=== PATIENT | male | born 1995 | race Caucasian/White ===

== ENCOUNTER 2024-02-12 12:14 | Emergency (ER) | payer OTHER, SELFPAY ==
[2024-02-12 12:27] VITALS: BP 145/91
[2024-02-12 12:55] LABS: ALT (SGPT) 16 U/L (0-50); AST (SGOT) 25 U/L (17-59); Albumin 4.9 g/dl (3.5-5.0); Alkaline Phosphatase 54 U/L (38-126); Blood Urea Nitrogen 24 mg/dl (9-20); Calcium 9.8 mg/dl (8.4-10.2); Carbon Dioxide 29 mmol/L (22-30); Chloride 103 mmol/L (98-107); Glucose 87 mg/dl (70-99); Lipase 86 U/L (23-300); Sodium 138 mmol/L (135-145); Total Bilirubin 0.5 mg/dl (0.2-1.3); Total Protein 7.3 g/dl (6.3-8.2); eGFR > 60.00
[2024-02-12 13:02] LABS: % Basophils 0.5 % (0-2); % Eosinophils 1.5 % (0-6); % Immature Granulocytes 0.1 % (0-0.5); % Lymphocytes 29.1 % (20.5-51.1); % Monocytes 8.2 % (1.7-9.3); % Neutrophils 60.6 % (42.2-75.2); Absolute Eosinophils 0.1 10^3/uL (0-0.7); Absolute Lymphocytes 2.3 10^3/uL (1.2-3.4); Absolute Monocytes 0.6 10^3/uL (0.1-0.6); Absolute Neutrophils 4.8 10^3/uL (1.4-6.5); Hematocrit 45.1 % (39.0-52.0); Hemoglobin 15.1 g/dL (13.0-18.0); Mean Corp Hgb Conc. 33.5 g/dL (33.0-37.0); Mean Corpuscular Hgb 29.4 pg (27.0-31.0); Mean Corpuscular Volume 87.9 fL (80.0-94.0); Mean Platelet Volume 10.7 fL (7.4-10.4); Nucleated Red Blood Cells % 0 % (-); Platelet Count 204 10^3/uL (130-400); Red Blood Cell Count 5.13 10^6/uL (4.70-6.10); Red Cell Dist. Width 11.7 % (11.5-14.5); White Blood Cell Count 7.8 10^3/uL (4.8-10.8)
[2024-02-12 15:28] VITALS: BMI 24.6
[2024-02-12 16:12] LABS: Urine Albumin Negative (Neg - Trace); Urine Bilirubin Negative (Negative); Urine Character Clear (Clear); Urine Color Straw; Urine Glucose Negative (Negative); Urine Ketone Negative (Negative); Urine Leukocyte Negative (Negative); Urine Nitrite Negative (Negative); Urine Occult Blood Negative (Negative); Urine Urobilinogen Negative (Neg - 1+)
--- NOTE | 2024-02-12 17:08 | ED.GENMED ---
History of Present Illness
General
Chief Complaint: Abdominal Pain
Source: patient
Exam Limitations: none
Time Seen by Provider: 02/12/24 15:02
Nursing documentation reviewed up to this point in time: agreed with
Travel History
Have you had any contact with someone who has COVID-19?: No
Do you have any symptoms of coronavirus? Fever > 100 degrees, chills, cough, shortness of breath, sore throat, loss of taste or smell, muscle aches, or headache?: No
History of Present Illness
History of Present Illness:
28-year-old male with past ministry of IgA vasculitis a few years ago but no ongoing chronic medical conditions presenting to the emergency department today with concerns of left lower quad abdominal pain that was initial intermittently intermittent
over the past week but worsening over the past day or so has had some nausea and fatigue over the past few days. Denies vomiting denies significant diarrhea denies injury to the area.
Past History
Past History
ED Past Medical History: None
ED Past Surgical History: None
Review of Systems
Review of Systems
Allergies reviewed?: Yes
All Other Systems: ROS reviewed and negative except as documented in HPI and ROS
Phy Exam
Physical Exam
Physical Exam:
GENERAL: Alert , in no apparent distress
EYE: pupils equal and reactive
NECK: Supple, no significant adenopathy.
ENT: o/p clr, mmm.
CARDIAC: Regular rate and rhythm .
LUNGS: Clear breath sounds bilaterally, no acute respiratory distress, no wheezes/rales/rhonchi
ABDOMEN: Left lower quadrant Tommy pain otherwise soft benign abdomen.
NEUROLOGICAL: Alert and oriented, no focal neuro deficits
SKIN: Warm and dry, skin intact.
MUSCULOSKELETAL: No edema, well perfused.
PSYCH: Normal and appropriate interaction.
Course
Orders/Labs/Results
Orders:
Orders
02/12/24 12:30
IV Insert/Care/Rem.- Treatment PRN
02/12/24 12:36
Complete Blood Count/With Diff Urgent
Comprehensive Metabolic Panel Urgent
Lipase Urgent
02/12/24 15:37
CT Abd/Pel (IV only)-DH only Urgent
Comment:
Reason For Exam: LLQ PAIN
02/12/24 15:55
Urinalysis Reflex To Culture Urgent
Date Specimen was Collected: 02/12/24
Time Specimen was Collected: 15:43
Abnormal Lab Results
02/12/24
12:36
MPV 10.7 H fL
(7.4-10.4)
BUN 24 H mg/dl
(9-20)
02/12/24 12:36
02/12/24 12:36
Vital Signs
Initial and Last Documented VS:
Initial Vital Signs
Temp Pulse Resp BP Pulse Ox
98 F 86 18 145/91 99
02/12/24 12:27 02/12/24 12:27 02/12/24 12:27 02/12/24 12:27 02/12/24 12:27
Last Documented Vital Signs
Temp Pulse Resp BP Pulse Ox
98 F 86 18 145/91 99
02/12/24 12:27 02/12/24 12:27 02/12/24 12:27 02/12/24 12:27 02/12/24 12:27
MDM/Problems Addressed
MDM/Problems Addressed:
20-year-old male presenting to the emergency department today with concerns of left lower quadrant abdominal pain over the past week. Worsening today associated nausea. Tenderness palpation to the left lower quadrant on exam plan for CT scan for
further assessment. CT without emergent findings. Patient in no distress throughout ER stay labs unremarkable urinalysis normal. Rectal examination revealing brown stool guaiac negative. Patient appears stable for outpatient follow-up return
precautions given.
*Critical Care Note
Total Time (30-74mins, 75-104mins- exclusive of procedures): Not Applicable
ED Attending Note
-
Portions of this chart may have been created with voice recognition software.� Occasional wrong word or��sound alike� substitutions may have occurred due to the inherent limitations of voice recognition software.
Discharge Plan
Departure
Patient Disposition: Home (Routine Discharge)
Date of Disposition: 02/12/24
Time of Disposition: 17:38
Patient with high blood pressure during this ER visit?: No
Condition: Good
Covid-19: Not Applicable
Discharge Problem:
Abdominal pain, LLQ (left lower quadrant)
Instructions: Abdominal Pain
Prescriptions:
No Action
cephalexin 500 MG capsule
500 mg PO QID Qty: 28 0RF
Referrals:
Antoinette Jack MD [Active] - Follow up in 5-7 days
UNKNOWN - PT DOES,NOT KNOW [Family Provider] -
Activity Restrictions/Additional Instructions:
You came to the emergency department today with concerns of abdominal pain and also red coloration of your stool. Here you had a reassuring evaluation no blood ongoing in your stool hemoglobin of [address] scan without emergent findings. Please
follow closely with GI for ongoing issues. Return to the emergency department for any worsening, new or concerning symptoms.
Interventions
Interventions:
*Risk Screen - Suicide Last Done: 02/12/24 12:27
*General Assessment Last Done: 02/12/24 12:27
*Neglect/Abuse Screening Last Done: 02/12/24 12:27
Discharge Date and Time
Print Language: [facility]
== END 2024-02-12 18:04 | disposition home or self-care (01) ==
LOC: EMR 12:14
PROVIDERS: Emergency Medicine; Physician Assistant; EMERGENCY PHYSICIAN Emergency Medicine
DX: R10.32 Left lower quadrant pain (principal)
CPT/HCPCS: 99284; 74177; 80053; 81003; 83690; 85025; Q9967